=== PATIENT | female | born 1995 | race Caucasian/White ===

== ENCOUNTER 2018-04-21 05:22 | Emergency (ER) | payer BC ==
[~2018-04-21] VITALS: Ht 162.6 cm; Wt 47.0 kg
--- NOTE | 2018-04-21 06:19 | NUR ---
DR. SCHULTZ AT BEDSIDE.
[2018-04-21] MEDS ORDERED: ondansetron 4mg rapidly disintigrating tab PO ONE (06:20)
[2018-04-21] MEDS ORDERED: pantoprazole 40mg Tablet.DR PO ONE (06:20)
--- NOTE | 2018-04-21 06:24 | NUR ---
reminded that ruine sample is needed.
[2018-04-21 06:41] VITALS: BP 111/62
--- NOTE | 2018-04-21 06:41 | NUR ---
pt up to the bathroom.
[2018-04-21 06:53] LABS: BASOPHILS % (AUTO) 0.5 % (0-1); EOSINOPHILS # (AUTO) 0.3 X10'3 (0-0.9); EOSINOPHILS % (AUTO) 4.8 % (0-6); HEMATOCRIT 39.2 % (35.0-45.0); HEMOGLOBIN 13.3 g/dl (12.0-16.0); LYMPHOCYTES # (AUTO) 2.1 X10'3 (1.1-4.8); MEAN CORPUSCULAR HEMOGLOBIN 31.2 PG (27.0-31.0); MEAN CORPUSCULAR HGB CONC 33.9 % (33.0-36.5); MEAN CORPUSCULAR VOLUME 91.8 FL (78-98); MEAN PLATELET VOLUME 8.2 FL (7.4-10.4); MONOCYTES # (AUTO) 0.4 X10'3 (0-0.9); MONOCYTES % (AUTO) 5.9 % (2-12); NEUTROPHILS # (AUTO) 4.1 X10'3 (1.8-7.7); NEUTROPHILS % (AUTO) 58.8 % (42-75); PLATELET COUNT 297 X10'3 (140-440); RED BLOOD COUNT 4.27 X10'6 (4.20-5.60); RED CELL DISTRIBUTION WIDTH 12.9 % (11.5-14.5)
[2018-04-21 06:55] LABS: CLARITY,URINE CLEAR (Clear); COLOR,URINE YELLOW (Yellow); GLUCOSE, URINE NEGATIVE (Neg); KETONES,URINE 15 mg/dl (Neg); LEUKOCYTE ESTERASE ,URINE NEGATIVE (Neg); NITRITES, URINE NEGATIVE (Neg); OCCULT BLOOD,URINE NEGATIVE (Neg); PH,URINE 6.5 (4.8-8.0); PROTEIN,URINE NEGATIVE (Neg); UROBILINOGEN,URINE 0.2 E.U/dL (0.2-1.0)
[2018-04-21 06:59] LABS: URINE HCG NEGATIVE (NEG)
[2018-04-21 07:02] LABS: UA COLLECTION TYPE CLN CATCH MIDSTREAM
[2018-04-21 07:08] LABS: ALANINE AMINOTRANSFERASE 30 U/L (12-78); ALBUMIN 4.1 G/DL (3.4-5.0); ALBUMIN/GLOBULIN RATIO 1.3 (1.1-1.5); ALKALINE PHOSPHATASE 63 IU/L (20-180); ANION GAP 11 (8-16); ASPARTATE AMINO TRANSFERASE 25 U/L (10-37); BILIRUBIN,TOTAL 0.3 MG/DL (0.1-1.0); BLOOD UREA NITROGEN 8 MG/DL (7-18); BUN/CREATININE RATIO 10.4 (6.6-38.0); CALCIUM 8.6 MG/DL (8.5-10.1); CHLORIDE 105 MMOL/L (99-107); CREATININE 0.77 MG/DL (0.40-0.90); GLUCOSE 92 MG/DL (70-104); LIPASE 185 U/L (73-393); POTASSIUM 3.4 MMOL/L (3.5-5.1); SODIUM 140 MMOL/L (135-145); TOTAL CARBON DIOXIDE 24.1 MMOL/L (24-32); TOTAL PROTEIN 7.2 G/DL (6.4-8.2); eGFR > 90 ML/MIN
[2018-04-21] MEDS ORDERED: PANT-47 PO (08:08)
== END 2018-04-21 08:19 | disposition home or self-care (01) ==
LOC: ER 05:23
DX: R10.84 Generalized abdominal pain (principal); R11.0 Nausea; F17.200 Nicotine dependence, unspecified, uncomplicated; F12.90 Cannabis use, unspecified, uncomplicated; Z88.0 Allergy status to penicillin
CPT/HCPCS: 36415; 80053; 81003; 81025; 83690; 85025; 99283

== ENCOUNTER 2018-04-26 22:17 | Observation (INO) | payer BC ==
[~2018-04-26] VITALS: Ht 162.6 cm; Wt 46.6 kg
[~2018-04-26 22:17] MED LIST: PANT-47 PO
[2018-04-26] MEDS ORDERED: metoclopramide 10mg tablet PO ONE (22:40)
[2018-04-26] MEDS ORDERED: famotidine 20mg tablet PO ONE (22:40)
[2018-04-26] MEDS ORDERED: mag hydrox/Alum hydrox/simeth 30ml oral suspension PO ONE (22:40)
[2018-04-26] MEDS ORDERED: LIDOcaine Viscous 15ml cup PO ONE (22:40)
--- NOTE | 2018-04-26 22:43 | NUR ---
DR LUNA AT BEDSIDE WITH US. US SHOWS SUSPECTED GALLSTONE. ORDERS EXPECTED
[2018-04-26 22:49] LABS: COLOR,URINE YELLOW (Yellow); GLUCOSE, URINE NEGATIVE (Neg); KETONES,URINE TRACE mg/dl (Neg); LEUKOCYTE ESTERASE ,URINE NEGATIVE (Neg); NITRITES, URINE NEGATIVE (Neg); OCCULT BLOOD,URINE SMALL (Neg); PROTEIN,URINE TRACE mg/dl (Neg); UROBILINOGEN,URINE 0.2 E.U/dL (0.2-1.0)
[2018-04-26] MEDS ORDERED: morphine 4 MG/ML inj SYRINge IV ONE (22:50)
[2018-04-26] MEDS ORDERED: ondansetron/PF 4mg/2ml inj IV ONE (22:50)
[2018-04-26 22:58] LABS: UA COLLECTION TYPE CLN CATCH MIDSTREAM
[2018-04-26 22:59] LABS: BACTERIA,URINE FEW /HPF (Neg); CLARITY,URINE SLIGHTLY CLOUDY (Clear); MUCUS STRANDS MODERATE /LPF (Neg); RBC,URINE 0-2 /HPF (0-2); SQUAMOUS EPITHELIAL CELL,UR FEW /LPF (FEW)
[2018-04-26] MEDS ORDERED: morphine 4 MG/ML inj SYRINge IV PRN (23:05)
[2018-04-26 23:14] LABS: ALANINE AMINOTRANSFERASE 34 U/L (12-78); ALBUMIN 4.8 G/DL (3.4-5.0); ALBUMIN/GLOBULIN RATIO 1.5 (1.1-1.5); ALKALINE PHOSPHATASE 75 IU/L (20-180); ANION GAP 13 (8-16); ASPARTATE AMINO TRANSFERASE 18 U/L (10-37); BILIRUBIN,TOTAL 0.4 MG/DL (0.1-1.0); BLOOD UREA NITROGEN 8 MG/DL (7-18); CALCIUM 8.8 MG/DL (8.5-10.1); CHLORIDE 103 MMOL/L (99-107); GLUCOSE 96 MG/DL (70-104); LIPASE 200 U/L (73-393); POTASSIUM 3.3 MMOL/L (3.5-5.1); SODIUM 141 MMOL/L (135-145); TOTAL CARBON DIOXIDE 25.1 MMOL/L (24-32); eGFR > 90 ML/MIN
[2018-04-26 23:15] LABS: BASOPHILS # (AUTO) 0.1 X10'3 (0-0.2); BASOPHILS % (AUTO) 0.8 % (0-1); EOSINOPHILS # (AUTO) 0.4 X10'3 (0-0.9); EOSINOPHILS % (AUTO) 4.5 % (0-6); HEMATOCRIT 43.4 % (35.0-45.0); HEMOGLOBIN 14.7 g/dl (12.0-16.0); LYMPHOCYTES # (AUTO) 3.4 X10'3 (1.1-4.8); LYMPHOCYTES % (AUTO) 38.1 % (21-51); MEAN CORPUSCULAR HGB CONC 33.8 % (33.0-36.5); MEAN CORPUSCULAR VOLUME 91.8 FL (78-98); MEAN PLATELET VOLUME 8.5 FL (7.4-10.4); MONOCYTES # (AUTO) 0.6 X10'3 (0-0.9); NEUTROPHILS # (AUTO) 4.4 X10'3 (1.8-7.7); NEUTROPHILS % (AUTO) 49.6 % (42-75); PLATELET COUNT 373 X10'3 (140-440); RED BLOOD COUNT 4.73 X10'6 (4.20-5.60); RED CELL DISTRIBUTION WIDTH 13.2 % (11.5-14.5); WHITE BLOOD COUNT 8.8 X10'3 (4.5-11.0)
[2018-04-26 23:29] LABS: URINE HCG NEGATIVE (NEG)
[2018-04-27] VITALS (15 sets, daily range): BP systolic 85–127; BP diastolic 45–83
[2018-04-27 00:10] LABS: H PYLORI ANTIBODY NEGATIVE (Neg)
--- NOTE | 2018-04-27 00:11 | NUR ---
US AT BEDSIDE
--- NOTE | 2018-04-27 00:32 | NUR ---
DR LUNA AT BEDSIDE TALKING TO PT ABOUT POC AND TALKING TO SURGEON
[2018-04-27] MEDS ORDERED: bisacodyl 10mg suppository rectal RC PRN (01:45)
[2018-04-27] MEDS ORDERED: HYDROmorphone inj. 0.5 MG/0.5 ML DISP.SYRIN IV PRN (01:45)
[2018-04-27] MEDS ORDERED: potassium Cl 40MEQ/NS 500ml 500 ML IV PRN ×2 (01:45)
[2018-04-27] MEDS ORDERED: acetaminophen 650mg rectal suppository RC PRN (01:45)
[2018-04-27] MEDS ORDERED: magnesium 2GM in 50ml NS 50 ML IV PRN (01:45)
[2018-04-27] MEDS ORDERED: ondansetron/PF 4mg/2ml inj IV PRN ×2 (01:45→11:55)
[2018-04-27] MEDS ORDERED: potassium Cl 20 mEq SR tablet PO PRN ×2 (01:45)
[2018-04-27] MEDS ORDERED: magnesium 4gm in 100ml NS 100 ML IV PRN (01:45)
[2018-04-27] MEDS: normal saline 1000ml 1,000 ML IV SCH ×2 (02:00→14:51)
[2018-04-27] MEDS: HYDROmorphone 1 mg/ml syringe IV PRN ×2 (03:02→16:29)
--- NOTE | 2018-04-27 03:10 | NUR ---
Received report from Jonathan CISNEROS, awaiting patient arrival from ED.
--- NOTE | 2018-04-27 06:20 | NUR ---
Problems reprioritized. Patient report given, questions answered & plan of care reviewed with Monica CISNEROS.
--- NOTE | 2018-04-27 06:27 | NUR ---
Patient in room [facility]. I have received report from Samantha CISNEROS and had the opportunity to ask questions and assume patient care.
[2018-04-27] MEDS ORDERED: K and/or MAG REPLACEMENT MC SCH (08:00)
[2018-04-27 10:12] LABS: INR 1.1 INR; PRE OP PARTIAL THROMB. TIME 27 SECONDS (22-35); PROTHROMBIN TIME 11.4 SECONDS (9.0-12.0)
--- NOTE | 2018-04-27 10:24 | NUR ---
Report given to the PHOTO MASK PATTERN GENERATOR over the phone. Repeat K was 4.2, relayed to the nurse
[2018-04-27] MEDS ORDERED: LIDOcaine 1% 30ml preserv. free vial ONE (10:30)
[2018-04-27] MEDS ORDERED: BUPIVAcaine/PF 2.5mg/ml (0.25%) 10ml vial ONE (10:30)
--- NOTE | 2018-04-27 10:39 | NUR ---
Patient went to OR via her bed.
[2018-04-27] MEDS ORDERED: sevoflurane 250ml liquid IH ONE (11:18)
[2018-04-27] MEDS ORDERED: midazolam 2 mg/2 ml injection ONE (11:23)
[2018-04-27] MEDS ORDERED: fentaNYL/PF 50MCG/1 ML 2ML syringe ONE (11:23)
[2018-04-27] MEDS ORDERED: propofol inj 20 ML IV ONE (11:25)
[2018-04-27] MEDS ORDERED: rocuronium 10mg/ml inj IV ONE (11:25)
[2018-04-27] MEDS ORDERED: ringers solution, lacted 1,000 ML IV SCH (11:52)
[2018-04-27] MEDS ORDERED: meperidine/PF 25mg/ml syringe IV PRN ×3 (11:55)
[2018-04-27] MEDS ORDERED: proCHLORperazine 10 MG/2 ml inj IV PRN (11:55)
[2018-04-27] MEDS ORDERED: morphine 4 MG/ML inj SYRINge IV PRN ×2 (11:55)
[2018-04-27] MEDS ORDERED: ondansetron/PF 4mg/2ml inj ONE (12:22)
[2018-04-27] MEDS ORDERED: neostigmine methylsulfate 1 MG/ML 10ml vial ONE (12:22)
[2018-04-27] MEDS ORDERED: glycopyrrolate 0.2mg/ml inj ONE (12:22)
--- NOTE | 2018-04-27 12:45 | NUR ---
Received from OR via bed, accompanied by Anesthesiologist. Report received. Initial physical assessment done and recorded.
[2018-04-27] MEDS ORDERED: HYDROcodone/acetaminophen 5mg/325mg tablet PO PRN (13:00)
--- NOTE | 2018-04-27 13:50 | NUR ---
Discharge criteria met, report to receiving floor. Medicated for pain during PACU stay, pain level ~5 upon discharge from PACU. Transferred to room in stable condition.
[2018-04-27] MEDS ORDERED: acetaminophen 325mg tablet PO SCH (14:00)
[2018-04-27] MEDS ORDERED: acetaminophen 1,000mg/100ml IV 100 ML IV SCH (14:00)
[2018-04-27] MEDS ORDERED: ketorolac trometh. 30mg/ml inj. IV SCH (14:00)
--- NOTE | 2018-04-27 16:43 | NUR ---
Patient ambulated from room to the hallway x 1 lap. She was in pain, medicated with Dilaudid 1mg IV prior to ambulation.
--- NOTE | 2018-04-27 17:40 | NUR ---
Dr. Land said he will be discharging this patient tonight. I told him that patient has not passed gas yet.
--- NOTE | 2018-04-27 17:51 | NUR ---
Sent message to Dr. Bashir via paging system [facility]
[2018-04-27] MEDS ORDERED: HYDR-4383 PO (17:52)
--- NOTE | 2018-04-27 18:34 | NUR ---
Problems reprioritized. Patient report given, questions answered & plan of care reviewed with Haley CISNEROS.
--- NOTE | 2018-04-27 18:45 | NUR ---
Patient's mum 'Yancy Diego" has just arrived to take pt. home. Villalba prescription given to her for safe keeping.
--- NOTE | 2018-04-27 18:45 | NUR ---
Patient in room [facility]. I have received report from Monica CISNEROS and had the opportunity to ask questions and assume patient care.
--- NOTE | 2018-04-27 19:35 | NUR ---
Patient given pain medication just prior to leaving. Mum has norco prescription and also patients' own medication that was being held in our pharmacy. PIV dc'd- cannula intact. All discharge information gone over with patient and her mum - both verbalized their understanding. Bandaids to 3 lap sites remain clean and dry -no drainage noted. Patient escorted out in a w.c to private vehicle.
[2018-04-28] MEDS ORDERED: pantoprazole 40mg Tablet.DR PO SCH (08:00)
== END 2018-04-27 19:00 | disposition home or self-care (01) ==
LOC: ER 22:18 → ED HOLD 04-27 01:42 → SUR 3N 04-27 03:19 → PACU 04-27 10:38 → SUR 3N 04-27 13:56
PROVIDERS: ADMIT Family Medicine; ATTEND Family Medicine
DX: K80.62 Calculus of gallbladder and bile duct with acute cholecystitis without obstruction (principal); E87.6 Hypokalemia
CPT/HCPCS: 36415; 47562; 76700; 80053; 81001; 81025; 83690; 84132; 85025; 85610; 85730; 86677; 87070; 87077; 87088; 87186; 96374; 96375; 96376; 99284; G0378; J0131; J0690; J1170; J1885; J2175; J2250; J2270; J2405; J2704; J2710; J3010; J3480; J3490; J7030; J7120; A7000; J8597

== ENCOUNTER 2019-04-13 15:07 | Emergency (ER) | payer BC ==
[~2019-04-13] VITALS: Ht 165.1 cm; Wt 61.8 kg
[~2019-04-13 15:07] MED LIST changes: +HYDR-4383 PO
[2019-04-13 15:44] LABS: CLARITY,URINE CLEAR (Clear); COLOR,URINE YELLOW (Yellow); GLUCOSE, URINE NEGATIVE (Neg); KETONES,URINE NEGATIVE (Neg); LEUKOCYTE ESTERASE ,URINE NEGATIVE (Neg); NITRITES, URINE NEGATIVE (Neg); OCCULT BLOOD,URINE SMALL (Neg); PH,URINE 6.5 (4.8-8.0); PROTEIN,URINE NEGATIVE (Neg); UA COLLECTION TYPE CLN CATCH MIDSTREAM; UROBILINOGEN,URINE 0.2 E.U/dL (0.2-1.0)
[2019-04-13 15:45] LABS: BASOPHILS % (AUTO) 0.4 % (0-1); EOSINOPHILS # (AUTO) 0.2 X10'3 (0-0.9); HEMATOCRIT 42.2 % (35.0-45.0); HEMOGLOBIN 14.5 g/dl (12.0-16.0); LYMPHOCYTES % (AUTO) 28.5 % (21-51); MEAN CORPUSCULAR HEMOGLOBIN 30.9 PG (27.0-31.0); MEAN CORPUSCULAR HGB CONC 34.3 g/dL (33.0-36.5); MEAN CORPUSCULAR VOLUME 90.1 FL (78-98); MEAN PLATELET VOLUME 8.1 FL (7.4-10.4); MONOCYTES # (AUTO) 0.5 X10'3 (0-0.9); MONOCYTES % (AUTO) 4.8 % (2-12); NEUTROPHILS # (AUTO) 6.8 X10'3 (1.8-7.7); NEUTROPHILS % (AUTO) 64.3 % (42-75); PLATELET COUNT 303 X10'3 (140-440); RED BLOOD COUNT 4.69 X10'6 (4.20-5.60); WHITE BLOOD COUNT 10.6 X10'3 (4.5-11.0)
[2019-04-13 15:45] LABS: URINE HCG NEGATIVE (NEG)
[2019-04-13 15:50] LABS: BACTERIA,URINE NONE SEEN /HPF (Neg); MUCUS STRANDS NONE SEEN /LPF (Neg); SQUAMOUS EPITHELIAL CELL,UR FEW /LPF (FEW); WBC,URINE 0-4 /HPF (0-4)
[2019-04-13 16:02] LABS: ALANINE AMINOTRANSFERASE 78 U/L (12-78); ALBUMIN 4.3 G/DL (3.4-5.0); ALBUMIN/GLOBULIN RATIO 1.3 (1.1-1.5); ALKALINE PHOSPHATASE 88 IU/L (46-116); ANION GAP 5 (8-16); ASPARTATE AMINO TRANSFERASE 28 U/L (10-37); BILIRUBIN,TOTAL 0.3 MG/DL (0.1-1.0); BLOOD UREA NITROGEN 15 MG/DL (7-18); BUN/CREATININE RATIO 18.8 (6.6-38.0); CALCIUM 8.8 MG/DL (8.5-10.1); CHLORIDE 108 MMOL/L (99-107); GLUCOSE 86 MG/DL (70-104); LIPASE 198 U/L (73-393); POTASSIUM 3.8 MMOL/L (3.5-5.1); SODIUM 141 MMOL/L (135-145); TOTAL CARBON DIOXIDE 28.5 MMOL/L (24-32); TOTAL PROTEIN 7.5 G/DL (6.4-8.2); eGFR > 90 ML/MIN
[2019-04-13] MEDS ORDERED: morphine 4 MG/ML inj SYRINge IV PRN (18:05)
[2019-04-13] MEDS ORDERED: ondansetron/PF 4mg/2ml inj IV ONE (18:05)
[2019-04-13] MEDS ORDERED: NO HOME MEDS (18:20)
[2019-04-13] MEDS ORDERED: normal saline 1000ml 1,000 ML IV ONE (19:15)
[2019-04-13] MEDS ORDERED: cyclobenzaprine 10mg tablet PO ONE (19:55)
[2019-04-13 20:13] VITALS: BP 110/54
== END 2019-04-13 20:19 | disposition home or self-care (01) ==
LOC: ER 15:07
DX: R10.9 Unspecified abdominal pain (principal); E86.0 Dehydration; F12.90 Cannabis use, unspecified, uncomplicated; Z90.49 Acquired absence of other specified parts of digestive tract; Z88.0 Allergy status to penicillin; Z79.899 Other long term (current) drug therapy
CPT/HCPCS: 36415; 74176; 80053; 81001; 81025; 83690; 85025; 96361; 96374; 96375; 99284; J2270; J2405; J7030

== ENCOUNTER 2021-07-22 23:30 | Emergency (ER) | payer BC, MEDICAID ==
[~2021-07-22] VITALS: Ht 165.1 cm; Wt 56.8 kg
[~2021-07-22 23:30] MED LIST changes: -HYDR-4383 PO; +NO HOME MEDS; -PANT-47 PO
[2021-07-22 23:58] LABS: URINE HCG POSITIVE (NEG)
[2021-07-23 00:13] LABS: BASOPHILS # (AUTO) 0.1 X10'3 (0-0.2); BASOPHILS % (AUTO) 0.5 % (0-1); EOSINOPHILS # (AUTO) 0.3 X10'3 (0-0.9); EOSINOPHILS % (AUTO) 2.7 % (0-6); HEMATOCRIT 37.4 % (35.0-45.0); HEMOGLOBIN 13.1 g/dl (12.0-16.0); LYMPHOCYTES # (AUTO) 2.8 X10'3 (1.1-4.8); LYMPHOCYTES % (AUTO) 25.1 % (21-51); MEAN CORPUSCULAR HEMOGLOBIN 31.6 PG (27.0-31.0); MEAN CORPUSCULAR HGB CONC 35.1 g/dL (33.0-36.5); MEAN CORPUSCULAR VOLUME 90.1 FL (78-98); MONOCYTES # (AUTO) 0.7 X10'3 (0-0.9); MONOCYTES % (AUTO) 6.3 % (2-12); NEUTROPHILS # (AUTO) 7.3 X10'3 (1.8-7.7); NEUTROPHILS % (AUTO) 65.4 % (42-75); PLATELET COUNT 235 X10'3 (140-440); RED BLOOD COUNT 4.15 X10'6 (4.20-5.60); RED CELL DISTRIBUTION WIDTH 12.9 % (11.5-14.5); WHITE BLOOD COUNT 11.1 X10'3 (4.5-11.0)
[2021-07-23 00:25] LABS: ALANINE AMINOTRANSFERASE 29 U/L (12-78); ALBUMIN/GLOBULIN RATIO 1.4 (1.1-1.5); ALKALINE PHOSPHATASE 50 IU/L (46-116); ANION GAP 7 (8-16); ASPARTATE AMINO TRANSFERASE 18 U/L (10-37); BILIRUBIN,TOTAL 0.2 MG/DL (0.1-1.0); BLOOD UREA NITROGEN 6 MG/DL (7-18); BUN/CREATININE RATIO 8.5 (6.6-38.0); CALCIUM 8.6 MG/DL (8.5-10.1); CHLORIDE 105 MMOL/L (99-107); CREATININE 0.71 MG/DL (0.40-0.90); GLUCOSE 118 MG/DL (70-104); POTASSIUM 3.3 MMOL/L (3.5-5.1); SODIUM 138 MMOL/L (135-145); TOTAL CARBON DIOXIDE 25.7 MMOL/L (24-32); TOTAL PROTEIN 6.8 G/DL (6.4-8.2); eGFR > 90 ML/MIN
[2021-07-23 00:48] LABS: BETA HCG,QUANTITATIVE 7901 mIU/ml
--- NOTE | 2021-07-23 01:11 | NUR ---
Patient resting comfortably, peding US.
--- NOTE | 2021-07-23 01:28 | NUR ---
US with patient now.
--- NOTE | 2021-07-23 03:21 | NUR ---
Type and Screen pending
[2021-07-23 03:46] VITALS: BP 95/60
== END 2021-07-23 03:51 | disposition home or self-care (01) ==
LOC: ER 23:31
DX: O03.9 Complete or unspecified spontaneous abortion without complication (principal); Z3A.10 10 weeks gestation of pregnancy; F12.10 Cannabis abuse, uncomplicated; Z88.0 Allergy status to penicillin; Z79.899 Other long term (current) drug therapy
CPT/HCPCS: 36415; 76801; 80053; 81025; 84702; 85025; 86885; 86900; 86901; 99284